=== PATIENT | male | born 1975 | race Caucasian/White ===

== ENCOUNTER 2018-04-24 03:42 | Inpatient (IN) | payer OTHER ==
[~2018-04-24] VITALS: Ht 172.7 cm; Wt 68.0 kg
[2018-04-24 03:50] VITALS: Ht 172.7 cm; Wt 68.0 kg
[2018-04-24 04:25] LABS: BASOPHIL % 0.5 % (0-2); PLATELET COUNT 344 x10^3mcL (130-400); RED CELL DISTRIBUTION WIDTH 13.6 % (11.5-14.5)
[2018-04-24 04:38] LABS: CALCIUM 8.4 mg/dL (8.5-10.1); CARBON DIOXIDE 26.4 mmol/L (21-32); CHLORIDE SERUM 102 mmol/L (98-107); CREATININE SERUM 0.6 mg/dL (0.7-1.3); GFR1 > 60 mL/min; GLUCOSE SERUM 97 mg/dL (74-106); POTASSIUM SERUM 3.4 mmol/L (3.5-5.1); SODIUM SERUM 139 mmol/L (136-145)
[2018-04-24 04:43] LABS: ALBUMIN 3.8 g/dL (3.4-5.0); ALKALINE PHOSPHATASE 98 U/L (46-116); ALT/SGPT 11 U/L (16-63); AST/SGOT 11 U/L (15-37); BILIRUBIN TOTAL 0.4 mg/dL (0.20-1.00); TOTAL PROTEIN, SERUM 7.5 g/dL (6.4-8.2)
[2018-04-24 05:09] LABS: AMPHETAMINE QUAL UR NONE DETECTED (See below)
[2018-04-24] MEDS ORDERED: CREON1 ECC (20:48)
[2018-04-24] MEDS ORDERED: OXYCODONE HYDROC5 M2 (20:48)
[2018-04-24 21:10] LABS: CHOLESTEROL/HDL RATIO 2.5; MAGNESIUM 1.9 mg/dL (1.8-2.4); PHOSPHOROUS 2.9 mg/dL (2.5-4.9)
[2018-04-24 21:27] LABS: T3 TOTAL 0.81 ng/mL
[2018-04-24 21:35] LABS: FREE T4 1.09 ng/dL (0.76-1.46); FREE THYROXINE INDEX 2.5 ug/dL (1.4-4.5); T4(THYROXINE) 6.6 ug/dL (4.7-13.3)
[2018-04-24 23:37] VITALS: BP 143/94
[2018-04-25 05:41] VITALS: BP 100/72
[2018-04-25 06:16] LABS: BASOPHIL % 0.5 % (0-2); PLATELET COUNT 294 x10^3mcL (130-400)
[2018-04-25 06:50] LABS: CALCIUM 8.3 mg/dL (8.5-10.1); CARBON DIOXIDE 26.9 mmol/L (21-32); CHLORIDE SERUM 103 mmol/L (98-107); CREATININE SERUM 0.6 mg/dL (0.7-1.3); GFR1 > 60 mL/min; GLUCOSE SERUM 76 mg/dL (74-106); MAGNESIUM 2.1 mg/dL (1.8-2.4); POTASSIUM SERUM 3.7 mmol/L (3.5-5.1); SODIUM SERUM 141 mmol/L (136-145)
[2018-04-25 12:49] VITALS: BP 103/72
[2018-04-25 18:38] VITALS: BP 131/91
== END 2018-04-25 18:50 | disposition home or self-care (01) | DRG 52 ==
LOC: ED 03:42 → DU 20:45
PROVIDERS: Emergency Medicine; Family Medicine
DX: G92 Toxic encephalopathy (principal); N17.0 Acute kidney failure with tubular necrosis; I50.43 Acute on chronic combined systolic (congestive) and diastolic (congestive) heart failure; N18.6 End stage renal disease; R45.851 Suicidal ideations; R44.0 Auditory hallucinations; R10.13 Epigastric pain; F17.210 Nicotine dependence, cigarettes, uncomplicated; F10.129 Alcohol abuse with intoxication, unspecified; Y90.6 Blood alcohol level of 120-199 mg/100 ml; R73.03 Prediabetes; F10.188 Alcohol abuse with other alcohol-induced disorder; J45.909 Unspecified asthma, uncomplicated; F33.1 Major depressive disorder, recurrent, moderate; K86.89 Other specified diseases of pancreas
CPT/HCPCS: 84439; G0480; J1630; J3490; J7030

== ENCOUNTER 2019-05-11 22:42 | Emergency (ER) | payer OTHER ==
[~2019-05-11] VITALS: Ht 165.1 cm; Wt 68.0 kg
[~2019-05-11 22:42] MED LIST: CREON1 ECC; OXYCODONE HYDROC5 M2
[2019-05-11 22:59] VITALS: Ht 165.1 cm; Wt 68.0 kg
[2019-05-12 00:34] VITALS: BP 104/69
== END 2019-05-12 00:34 | disposition left against medical advice (07) ==
LOC: ED 22:42
DX: M79.605 Pain in left leg (principal); M79.604 Pain in right leg
CPT/HCPCS: J1885

== ENCOUNTER 2020-03-15 09:46 | Emergency (ER) | payer OTHER ==
[~2020-03-15] VITALS: Ht 170.2 cm; Wt 70.8 kg
[2020-03-15 09:49] VITALS: Ht 170.2 cm; Wt 70.8 kg
[2020-03-15 10:22] LABS: BASOPHIL % 0.6 % (0-2); PLATELET COUNT 316 x10^3mcL (130-400); RED CELL DISTRIBUTION WIDTH 12.9 % (11.5-14.5)
[2020-03-15 10:28] LABS: ALBUMIN 3.6 g/dL (3.4-5.0); ALKALINE PHOSPHATASE 99 U/L (46-116); ALT/SGPT 27 U/L (16-63); AST/SGOT 4 U/L (15-37); BILIRUBIN TOTAL 0.41 mg/dL (0.20-1.00); CARBON DIOXIDE 27.8 mmol/L (21-32); CHLORIDE SERUM 100 mmol/L (98-107); CREATININE SERUM 0.7 mg/dL (0.7-1.3); GFR1 > 60 mL/min; GLUCOSE SERUM 90 mg/dL (74-106); LIPASE 83 IU/L (73-393); POTASSIUM SERUM 3.7 mmol/L (3.5-5.1); SODIUM SERUM 137 mmol/L (136-145); TOTAL PROTEIN, SERUM 7.2 g/dL (6.4-8.2)
[2020-03-15 10:32] LABS: CALCIUM 8.3 mg/dL (8.5-10.1)
[2020-03-15 11:23] VITALS: BP 110/54
== END 2020-03-15 11:23 | disposition home or self-care (01) ==
LOC: ED 09:46
PROVIDERS: Emergency Medicine
DX: K29.70 Gastritis, unspecified, without bleeding (principal); Z87.19 Personal history of other diseases of the digestive system; Z98.890 Other specified postprocedural states
CPT/HCPCS: 36415

== ENCOUNTER 2020-03-16 15:02 | Emergency (ER) | payer OTHER ==
[~2020-03-16] VITALS: Ht 170.2 cm; Wt 63.0 kg
[2020-03-16 15:09] VITALS: Ht 170.2 cm; Wt 63.0 kg
[2020-03-16 16:30] VITALS: BP 104/70
== END 2020-03-16 16:30 | disposition home or self-care (01) ==
LOC: ED 15:02
DX: K29.70 Gastritis, unspecified, without bleeding (principal); Z98.890 Other specified postprocedural states
CPT/HCPCS: Q0162

== ENCOUNTER 2020-03-23 15:00 | Emergency (ER) | payer OTHER ==
[~2020-03-23] VITALS: Ht 170.2 cm; Wt 68.0 kg
[2020-03-23 15:13] VITALS: Ht 170.2 cm; Wt 68.0 kg
[2020-03-23 16:51] VITALS: BP 103/70
== END 2020-03-23 16:51 | disposition home or self-care (01) ==
LOC: ED 15:00
DX: S62.307B Unspecified fracture of fifth metacarpal bone, left hand, initial encounter for open fracture (principal); F17.210 Nicotine dependence, cigarettes, uncomplicated; Z98.890 Other specified postprocedural states; W22.01XA Walked into wall, initial encounter; Y93.89 Activity, other specified; Y92.89 Other specified places as the place of occurrence of the external cause; Y99.8 Other external cause status
CPT/HCPCS: 90715; J2001; Q0092

== ENCOUNTER 2020-03-24 08:38 | Emergency (ER) | payer OTHER ==
[~2020-03-24] VITALS: Ht 170.2 cm; Wt 61.7 kg
[2020-03-24 08:42] VITALS: BP 106/73; Ht 170.2 cm; Wt 61.7 kg
== END 2020-03-24 09:00 | disposition home or self-care (01) ==
LOC: ED 08:38
DX: S62.307D Unspecified fracture of fifth metacarpal bone, left hand, subsequent encounter for fracture with routine healing (principal); X58.XXXD Exposure to other specified factors, subsequent encounter; Z85.89 Personal history of malignant neoplasm of other organs and systems; Z98.890 Other specified postprocedural states

== ENCOUNTER 2020-03-25 01:24 | Emergency (ER) | payer OTHER ==
[~2020-03-25] VITALS: Ht 170.2 cm; Wt 64.4 kg
[2020-03-25 01:31] VITALS: Ht 170.2 cm; Wt 64.4 kg
[2020-03-25 01:59] LABS: BASOPHIL % 1.2 % (0-2); PLATELET COUNT 282 x10^3mcL (130-400); RED CELL DISTRIBUTION WIDTH 13.4 % (11.5-14.5)
[2020-03-25 02:05] LABS: CALCIUM 7.9 mg/dL (8.5-10.1); CARBON DIOXIDE 29.6 mmol/L (21-32); CHLORIDE SERUM 101 mmol/L (98-107); CREATININE SERUM 0.7 mg/dL (0.7-1.3); GFR1 > 60 mL/min; GLUCOSE SERUM 107 mg/dL (74-106); POTASSIUM SERUM 3.6 mmol/L (3.5-5.1); SODIUM SERUM 133 mmol/L (136-145)
[2020-03-25 02:08] LABS: ALT/SGPT 17 U/L (16-63); AST/SGOT 10 U/L (15-37); BILIRUBIN TOTAL 0.4 mg/dL (0.20-1.00); TOTAL PROTEIN, SERUM 6.5 g/dL (6.4-8.2)
[2020-03-25 02:19] LABS: ALKALINE PHOSPHATASE 107 U/L (46-116)
[2020-03-25 02:22] LABS: ALBUMIN 3.2 g/dL (3.4-5.0)
[2020-03-25 05:21] VITALS: BP 130/60
== END 2020-03-25 05:21 | disposition home or self-care (01) ==
LOC: ED 01:24
DX: A08.4 Viral intestinal infection, unspecified (principal); Z98.890 Other specified postprocedural states
CPT/HCPCS: 36415; Q0162

== ENCOUNTER 2020-03-25 14:55 | Emergency (ER) | payer OTHER ==
[~2020-03-25] VITALS: Ht 170.2 cm; Wt 65.8 kg
[2020-03-25 15:06] VITALS: Ht 170.2 cm; Wt 65.8 kg
[2020-03-25 16:20] VITALS: BP 136/81
== END 2020-03-25 16:20 | disposition home or self-care (01) ==
LOC: ED 14:55
DX: R10.31 Right lower quadrant pain (principal); R10.32 Left lower quadrant pain; R19.7 Diarrhea, unspecified
CPT/HCPCS: J1885

== ENCOUNTER 2020-04-14 20:06 | Emergency (ER) | payer OTHER ==
[~2020-04-14] VITALS: Ht 172.7 cm; Wt 73.0 kg
[2020-04-14 20:15] VITALS: BP 98/67; Ht 172.7 cm; Wt 73.0 kg
[2020-04-14 21:40] LABS: BASOPHIL % 0.5 % (0-2); PLATELET COUNT 306 x10^3mcL (130-400); RED CELL DISTRIBUTION WIDTH 13.4 % (11.5-14.5)
[2020-04-14 21:53] LABS: CARBON DIOXIDE 29.2 mmol/L (21-32); CHLORIDE SERUM 103 mmol/L (98-107); CREATININE SERUM 0.7 mg/dL (0.7-1.3); GFR1 > 60 mL/min; GLUCOSE SERUM 97 mg/dL (74-106); POTASSIUM SERUM 3.6 mmol/L (3.5-5.1); SODIUM SERUM 139 mmol/L (136-145)
[2020-04-14 21:58] LABS: ALBUMIN 3.4 g/dL (3.4-5.0); ALKALINE PHOSPHATASE 94 U/L (46-116); ALT/SGPT 17 U/L (16-63); AST/SGOT 10 U/L (15-37); BILIRUBIN TOTAL 0.4 mg/dL (0.20-1.00); LIPASE 101 IU/L (73-393); TOTAL PROTEIN, SERUM 6.6 g/dL (6.4-8.2)
== END 2020-04-15 00:52 | disposition left against medical advice (07) ==
LOC: ED 20:06
PROVIDERS: Student in an Organized Health Care Education/Training Program
DX: R55 Syncope and collapse (principal); Z13.9 Encounter for screening, unspecified

== ENCOUNTER 2020-09-17 06:55 | Emergency (ER) | payer OTHER ==
[~2020-09-17] VITALS: Ht 170.2 cm; Wt 62.6 kg
[2020-09-17 07:03] VITALS: BP 121/69; Ht 170.2 cm; Wt 62.6 kg
== END 2020-09-17 09:50 | disposition left against medical advice (07) ==
LOC: ED 06:55
DX: Z53.21 Procedure and treatment not carried out due to patient leaving prior to being seen by health care provider (principal)